=== PATIENT | female | born 1960 | race American Indian/Alaskan Native ===

== ENCOUNTER 2017-02-08 21:43 | Emergency (ER) | payer OTHER ==
[2017-02-08] MEDS ORDERED: TYLENOL ONE (22:01)
[2017-02-08] MEDS ORDERED: TYLENOL PO ONE (22:11)
[2017-02-08 22:29] LABS: Basophils % (Auto) 0.7 % (0.0-1.8); Eosinophils % (Auto) 1.5 % (0.0-4.3); Hematocrit 39.4 % (30.3-42.9); Hemoglobin 13.6 gm/dl (10.1-14.3); Mean Corpuscular HGB Conc 35 % (30-34); Mean Corpuscular Hemoglobin 32 pg (28-32); Mean Corpuscular Volume 93 fl (79-97); Platelet Count 174 K/mm3 (140-440); Red Blood Count 4.25 M/mm3 (3.65-5.03); Red Cell Distribution Width 13.6 % (13.2-15.2); White Blood Count 8.5 K/mm3 (4.5-11.0)
[2017-02-08 22:37] LABS: Anion Gap 17 mmol/L; Blood Urea Nitrogen 14 mg/dL (7-17); Calcium 8.9 mg/dL (8.4-10.2); Carbon Dioxide 22 mmol/L (22-30); Glucose 97 mg/dL (65-100); Potassium 3.8 mmol/L (3.6-5.0); Sodium 138 mmol/L (137-145)
[2017-02-08 22:38] LABS: INR 0.98 (0.87-1.13)
[2017-02-08 22:39] LABS: Partial Thromboplastin Time 26.9 Sec. (24.2-36.6)
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
[2017-02-09 02:33] VITALS: BP 144/72
[2017-02-09] MEDS ORDERED: TORADOL ONE ×2 (03:59→04:01)
[2017-02-09] MEDS ORDERED: NORCO 5/325 ONE (04:00)
[2017-02-09] MEDS ORDERED: NORCO 5/325 PO ONE (04:08)
[2017-02-09] MEDS ORDERED: TORADOL IM ONE (04:08)
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
== END 2017-02-09 04:30 | disposition home or self-care (01) ==
LOC: ED 21:43
DX: S16.1XXA Strain of muscle, fascia and tendon at neck level, initial encounter (principal); S39.012A Strain of muscle, fascia and tendon of lower back, initial encounter; S20.219A Contusion of unspecified front wall of thorax, initial encounter; F17.200 Nicotine dependence, unspecified, uncomplicated; Z90.710 Acquired absence of both cervix and uterus; V89.2XXA Person injured in unspecified motor-vehicle accident, traffic, initial encounter; W22.10XA Striking against or struck by unspecified automobile airbag, initial encounter; Y93.89 Activity, other specified; Y92.89 Other specified places as the place of occurrence of the external cause; Y99.8 Other external cause status
CPT/HCPCS: 36415; 70450; 71020; 72100; 72125; 80048; 84484; 85025; 85610; 85730; 93005; 93010; 96372; 99285; J1885